=== PATIENT | male | born 1990 | race Caucasian/White ===

== ENCOUNTER 2020-10-09 13:14 | Outpatient (REF) | payer MEDICAID, SELFPAY ==
[2020-10-09 15:14] LABS: Alanine Aminotransferase 21 U/L (0-40); Albumin Level 4.6 g/dL (3.5-5.0); Alkaline Phosphatase 76 U/L (39-117); Anion Gap 10 (12-20); Aspartate Amino Transferase 19 U/L (5-37); Bilirubin Total 0.8 mg/dL (0.0-1.0); Blood Urea Nitrogen 13 mg/dL (9-16); Calcium 9.2 mg/dL (8.4-10.2); Carbon Dioxide 29 mmol/L (22-29); Chloride 104 mmol/L (96-108); Cholesterol 245 mg/dL; Estimated Glomerular Filt Rate > 60; Glucose Random 88 mg/dL (60-115); HDL Cholesterol 30 mg/dL; LDL Cholesterol Calculated 184 mg/dl; Potassium 4.3 mmol/l (3.3-5.1); Sodium 139 mmol/L (135-145); Total Protein 7.5 g/dL (6.5-8.0); Triglycerides 159 mg/dL
== END 2020-10-09 13:15 | disposition home or self-care (01) ==
LOC: HO.LAB 13:14
PROVIDERS: PCP Internal Medicine; Visit Provider Internal Medicine
DX: E78.00 Pure hypercholesterolemia, unspecified (principal); J02.9 Acute pharyngitis, unspecified; M54.5 Low back pain
CPT/HCPCS: 80053; 80061

== ENCOUNTER 2021-01-23 10:19 | Outpatient (REF) | payer OTHER, SELFPAY ==
--- NOTE | ~2021-01-23 | XR_ITS ---
EXAMINATION: XR SHOULDER, RIGHT CLINICAL INFORMATION: Injury COMPARISON: None TECHNIQUE: AP external rotation, Grashey, scapular Y, and axillary views of the right shoulder. FINDINGS: The bones and soft tissues are normal. No fracture. Glenohumeral and acromioclavicular alignment is anatomic with normal joint space. No abnormal soft tissue calcifications. XR/XR shoulder RT min 2V IMPRESSION: No fracture.
--- NOTE | ~2021-01-23 | XR_ITS ---
EXAMINATION: XR WRIST, LEFT CLINICAL INFORMATION: Pain left wrist . COMPARISON: None TECHNIQUE: PA, lateral, and oblique views of the left wrist. FINDINGS: The bones and soft tissues are normal. No fracture. Alignment is anatomic with normal joint spaces. No erosions or abnormal soft tissue calcifications. XR/XR wrist LT min 3V IMPRESSION: Unremarkable left wrist.
[2021-01-23 12:29] LABS: Alanine Aminotransferase 21 U/L (0-40); Albumin Level 4.4 g/dL (3.5-5.0); Alkaline Phosphatase 76 U/L (39-117); Anion Gap 14 (12-20); Aspartate Amino Transferase 14 U/L (5-37); Bilirubin Total 0.6 mg/dL (0.0-1.0); Blood Urea Nitrogen 9 mg/dL (9-16); Calcium 9.3 mg/dL (8.4-10.2); Carbon Dioxide 25 mmol/L (22-29); Chloride 105 mmol/L (96-108); Cholesterol 230 mg/dL; Estimated Glomerular Filt Rate > 60; Glucose Random 97 mg/dL (60-115); HDL Cholesterol 33 mg/dL; LDL Cholesterol Calculated 184 mg/dl; Potassium 4.5 mmol/L (3.3-5.1); Sodium 139 mmol/L (135-145); Total Protein 7.2 g/dL (6.5-8.0); Triglycerides 69 mg/dL
[2021-01-23 12:40] LABS: Amphetamine Screen Urine POSITIVE (Not Detect); Barbiturates, Urine Not Detected (Not Detect); Benzodiazepines Screen Urine Not Detected (Not Detect); Cannabinoid Screen Urine POSITIVE (Not Detect); Cocaine Screen Urine Not Detected (Not Detect); Opiate Screen Urine Not Detected (Not Detect); Phencyclidine Screen Urine Not Detected (Not Detect)
== END 2021-01-23 10:20 | disposition home or self-care (01) ==
LOC: HO.LAB 10:19
PROVIDERS: PCP Internal Medicine; Visit Provider Internal Medicine
DX: E78.00 Pure hypercholesterolemia, unspecified (principal); F90.9 Attention-deficit hyperactivity disorder, unspecified type; M25.532 Pain in left wrist; S49.91XA Unspecified injury of right shoulder and upper arm, initial encounter; X58.XXXA Exposure to other specified factors, initial encounter; Y93.9 Activity, unspecified; Y92.9 Unspecified place or not applicable; Y99.9 Unspecified external cause status
CPT/HCPCS: 73030; 73110; 80053; 80061; 80307

== ENCOUNTER 2021-01-25 00:36 | Emergency (ER) | payer OTHER, SELFPAY ==
--- NOTE | ~2021-01-25 | XR_ITS ---
EXAMINATION: SHOULDER 3 VIEWS, RIGHT CLINICAL INFORMATION: Right shoulder pain. COMPARISON: 01/23/2021. TECHNIQUE: AP views of the right shoulder were obtained in internal and external rotation. In addition, a Y view was obtained. FINDINGS: There are no fractures or dislocations. The humeral head is seated within a well-formed glenoid. The AC joint is intact. XR/XR shoulder RT min 2V IMPRESSION: Unremarkable right shoulder radiographs.
[2021-01-25 02:22] VITALS: BP 124/77; PULSE 67; RESP 18; TEMP 36.4; O2SAT 98; BMI 28.3
[2021-01-25 02:27] VITALS: RESP 18
--- NOTE | 2021-01-25 03:07 | ED_ITS ---
HPI - Extremity Problem General Chief complaint: Extremity Injury, Upper Stated complaint: SHOULDER PAIN INJURY Time Seen by Provider: 01/25/21 03:07 Source: patient Mode of arrival: ambulatory Limitations: no limitations History of Present Illness HPI Narrative: Patient fell few days ago while playing basketball landing on his right shoulder ,x-ray was done yesterday as outpatient which was negative today he popped his shoulder prior to arrival, comes here for pain, able to move his shoulder fully without difficulty Related Data Home Medications Medication Instructions Recorded Confirmed atorvastatin 1 tab PO DAILY 01/25/21 01/25/21 dextroamphetamine-amphetamine 1 cap PO QAM 01/25/21 01/25/21 [Adderall XR] Allergies Allergy/AdvReac Type Severity Reaction Status Date / Time ibuprofen [From MOTRIN] Allergy Intermediate HIVES AND Unverified 07/12/20 16:06 FACIAL SWELLING Review of Systems Review of Systems: Yes all other systems are reviewed and are negative PMFSH Past Medical History Medical History ADHD Surgical History History of appendectomy Social History Social History Alcohol intake: current Alcohol intake frequency: a few times a month Alcohol type: beer Smoking Status: Current every day smoker Smoked in Last 30 Days: Yes Substance Use Type: Marijuana and Prescription Drugs Advance Directives: No Advance Directives Information Provided: No Physical Exam Vital Signs: Vital Signs: Last Vital Signs Temp 97.6 F 01/25/21 02:22 Pulse 67 01/25/21 02:22 Resp 18 01/25/21 02:27 BP 124/77 01/25/21 02:22 Pulse Ox 98 01/25/21 02:22 Body Mass Index 28.3 Const: General: comfortable and no acute distress HENMT: Head: Yes normocephalic and Yes atraumatic Extrem: Shoulder/upper arm images: 1. Tender right trapezius area normal contour of right shoulder good range of movement neurovascular intact no deform ity noticed MDM - Extremity (Nontraumatic) MDM Narrative Medical decision making narrative: Patient muscular pain specially the right trapezius area with normal right shoulder on examination x-ray also negative for any acute dislocation or fracture discharged home advised to take tramadol Discharge Plan Discharge Prescriptions: No Action atorvastatin 40 mg tablet 1 tab PO DAILY RF: 0 dextroamphetamine-amphetamine [Adderall XR] 10 mg capsule,extended release 24hr 1 cap PO QAM RF: 0
[2021-01-25] MEDS: traMADoL HCL 50 MG TABLET PO (03:29)
== END 2021-01-25 03:32 | disposition home or self-care (01) ==
PROVIDERS: Emergency Provider Internal Medicine
DX: S46.911A Strain of unspecified muscle, fascia and tendon at shoulder and upper arm level, right arm, initial encounter (principal); W01.0XXA Fall on same level from slipping, tripping and stumbling without subsequent striking against object, initial encounter; F17.200 Nicotine dependence, unspecified, uncomplicated; F12.90 Cannabis use, unspecified, uncomplicated; Y93.67 Activity, basketball; Y92.310 Basketball court as the place of occurrence of the external cause; Y99.8 Other external cause status
CPT/HCPCS: 73030; 99283; 99284

== ENCOUNTER 2022-03-10 10:34 | Outpatient (REF) | payer OTHER, SELFPAY ==
--- NOTE | ~2022-03-10 | XR_ITS ---
EXAMINATION: XR HAND, LEFT CLINICAL INFORMATION: Injury COMPARISON: None TECHNIQUE: PA, lateral, and oblique views of the left hand. FINDINGS: The bones and soft tissues are normal. No fracture. Alignment is anatomic. Joint spaces are maintained. No erosions or soft tissue calcifications. XR/XR hand LT min 3V IMPRESSION: No fracture.
== END 2022-03-10 10:35 | disposition home or self-care (01) ==
LOC: HO.XRAY 10:34
PROVIDERS: Visit Provider Internal Medicine
DX: Z13.89 Encounter for screening for other disorder (principal)
CPT/HCPCS: 73130

== ENCOUNTER 2022-04-30 09:08 | Outpatient (REF) | payer OTHER, SELFPAY ==
[2022-04-30 10:36] LABS: MANUAL DIFF FLAG NO
[2022-04-30 10:43] LABS: Basophils Percent Auto 0.5 % (0-2); Eosinophils Absolute Auto 0.2 X10*3/uL (0.0-0.4); Eosinophils Percent Auto 2.3 % (0-4); Hemoglobin 15.8 g/dl (14.0-18.0); Imm Gran Abs Auto 0.04 X10*3/uL (0.00-0.03); Imm Gran Pct Auto 0.5 % (0.0-0.4); Lymphocytes Percent Auto 26.6 % (20-40); Mean Corpuscular HGB Conc 34.3 g/dl (31.0-36.0); Mean Corpuscular Hemoglobin 30.5 pg (27.0-33.0); Mean Corpuscular Volume 88.8 fL (80.0-98.0); Mean Platelet Volume 10.2 fL (9.4-12.4); Monocytes Absolute Auto 0.6 X10*3/uL (0.1-1.2); Monocytes Percent Auto 7.2 % (2-11); Neutrophils Absolute Auto 4.8 x10*3/uL (2.0-8.3); Neutrophils Percent Auto 62.9 % (45-73); Platelet Count 304 X10*3/uL (160-400); Red Blood Count 5.18 X10*6/uL (4.60-5.80); White Blood Count 7.7 X10*3/uL (4.8-10.8)
[2022-04-30 10:56] LABS: Alanine Aminotransferase 33 U/L (0-40); Albumin Level 4.3 g/dL (3.5-5.0); Alkaline Phosphatase 68 U/L (39-117); Anion Gap 11 (12-20); Aspartate Amino Transferase 21 U/L (5-37); Bilirubin Total 0.4 mg/dL (0.0-1.0); Blood Urea Nitrogen 10 mg/dL (9-16); Calcium 9.5 mg/dL (8.4-10.2); Carbon Dioxide 25 mmol/L (22-29); Chloride 107 mmol/L (96-108); Cholesterol 222 mg/dL; Estimated Glomerular Filt Rate > 60; Glucose Random 102 mg/dL (60-115); HDL Cholesterol 33 mg/dL; LDL Cholesterol Calculated 158 mg/dl; Potassium 4.4 mmol/L (3.3-5.1); Sodium 139 mmol/L (135-145); Total Protein 7.1 g/dL (6.5-8.0); Triglycerides 159 mg/dL
[2022-04-30 11:12] LABS: Thyroid Stimulating Hormone 1.31 uIU/mL (0.32-4.0)
[2022-04-30 13:15] LABS: CT PCR NOT DETECTED (Not Detect.); NG PCR NOT DETECTED (Not Detect.)
[2022-05-06 22:32] LABS: HSV 1 IgM IFA Negative (Negative); HSV 2 IgM IFA Negative (Negative)
== END 2022-04-30 09:09 | disposition home or self-care (01) ==
LOC: HO.10HDL 09:08
PROVIDERS: Visit Provider Internal Medicine
DX: Z00.00 Encounter for general adult medical examination without abnormal findings (principal); E78.00 Pure hypercholesterolemia, unspecified; R41.840 Attention and concentration deficit; Z13.31 Encounter for screening for depression
CPT/HCPCS: 36415; 80053; 80061; 84443; 85025; 86695; 86696; 87491; 87591

== ENCOUNTER 2022-12-03 12:11 | Outpatient (REF) | payer OTHER, SELFPAY ==
--- NOTE | ~2022-12-03 | XR_ITS ---
EXAMINATION: XR SHOULDER, RIGHT CLINICAL INFORMATION: Pain in right shoulder COMPARISON: 01/25/2021 TECHNIQUE: AP external rotation, Grashey, scapular Y, and axillary views of the right shoulder. FINDINGS: No acute fracture or dislocation. There is mild narrowing of the glenohumeral joint. Elevation of the humeral head relative to the glenoid fossa likely reflects underlying rotator cuff pathology. Mild degenerative changes of the acromioclavicular joint, progressed from prior study. XR/XR shoulder RT min 2V IMPRESSION: Mild narrowing of the glenohumeral joint. Elevation of the humeral head relative to the glenoid fossa likely reflects underlying rotator cuff pathology. Mild degenerative changes of the acromioclavicular joint, progressed from prior study.
== END 2022-12-03 12:12 | disposition home or self-care (01) ==
LOC: HO.HOSX 12:11
PROVIDERS: Visit Provider Physician Assistant
DX: M25.511 Pain in right shoulder (principal); M25.311 Other instability, right shoulder
CPT/HCPCS: 73030; 99202

== ENCOUNTER 2023-01-01 13:13 | Outpatient (REF) | payer OTHER, SELFPAY ==
--- NOTE | ~2023-01-01 | MR_ITS ---
EXAMINATION: MR SHOULDER WITH CONTRAST, RIGHT CLINICAL INFORMATION: Shoulder instability COMPARISON: Radiographs 12/03/2022 TECHNIQUE: MRI of the shoulder was performed following the intra-articular administration of a dilute gadolinium-containing solution (arthrogram) on a high-field scanner. FINDINGS: ROTATOR CUFF: Intact. No muscle atrophy or fatty infiltration. BICEPS: Normal. CORACOACROMIAL ARCH: The undersurface of the acromion is curved with no subacromial spur. Moderate acromioclavicular osteoarthritis. LABRUM/CAPSULE: The anterior inferior labrum is ill-defined and irregular, likely chronic tearing and attritional wear. Ill-defined undersurface tearing/fraying of the superior labrum. The humeral attachment of the inferior glenohumeral ligament is attenuated, likely a remote tear/avulsion (HAGL). GLENOHUMERAL JOINT/MARROW: There is cartilage irregularity of the anterior inferior glenoid rim with minimal degenerative spurring and a chondral flap at the 3:00 position. There is a 1.2 cm intra-articular body in the axillary recess. MR/MR shoulder RT w con IMPRESSION: 1. No rotator cuff tear. 2. Mild glenohumeral osteoarthritis with a 1.2 cm intra-articular body in the axillary recess. Ill-defined tearing/fraying of the anterior inferior labrum and undersurface fraying/tearing of the superior labrum. 3. Probable remote HAGL. 4. Moderate acromioclavicular osteoarthritis.
--- NOTE | ~2023-01-01 | FL_ITS ---
PROCEDURE: XR ARTHROGRAM SHOULDER, RIGHT CLINICAL INFORMATION: Right shoulder instability. Pain. COMPARISON: None TECHNIQUE: Following explaining fluoroscopy-guided right shoulder arthrogram procedure, benefits and risk, a written consent was obtained. Patient was placed supine on fluoroscopy table and anterior aspect of right shoulder was cleaned and draped in the usual sterile manner. 1% lidocaine was injected at the skin level overlying the right glenohumeral joint. A 22-gauge spinal needle was then inserted from the skin into the joint space and 2 mL of nonionic contrast was injected. After confirming contrast in the joint space under fluoroscopy, 0.1 mL of gadolinium diluted with 10 mL of 1% lidocaine was injected and needle withdrawn. Complete hemostasis achieved at puncture site. Sterile Band-Aid was applied at puncture site. Patient tolerated procedure extremely well FINDINGS: There are no fractures or dislocations. No joint effusion is identified. No bone, joint or soft tissue abnormality is demonstrated. Fluoroscopy-guided intra-articular gadolinium injected. FLUOROSCOPY TIME: 1.3 minutes DOSE AREA PRODUCT: 4.710 uGy-m2 (microgray-meter squared) FL/FL arthrogram shoulder RT IMPRESSION: Successful fluoroscopy-guided right shoulder arthrogram injected for patient to be imaged by MRI.
== END 2023-01-01 13:14 | disposition home or self-care (01) ==
LOC: HO.XRAY 13:13
PROVIDERS: PCP Internal Medicine; Visit Provider Physician Assistant
DX: M25.311 Other instability, right shoulder (principal)
CPT/HCPCS: 23350; 73040; 73222; A9585

== ENCOUNTER → 2023-01-29 14:49 | Outpatient (BNVA) | payer OTHER, SELFPAY | PROVIDERS: PCP Internal Medicine; Visit Provider Orthopaedic Surgery | DX: M25.311 Other instability, right shoulder (principal) | CPT/HCPCS: 99212 ==

== ENCOUNTER 2024-04-07 11:52 | Outpatient (REF) | payer OTHER, SELFPAY ==
[2024-04-07 13:11] LABS: MANUAL DIFF FLAG NO
[2024-04-07 13:27] LABS: Basophils Percent Auto 0.4 % (0-2); Eosinophils Absolute Auto 0.1 X10*3/uL (0.0-0.4); Eosinophils Percent Auto 0.9 % (0-4); Hematocrit 45.7 % (42.0-52.0); Hemoglobin 15.5 g/dl (14.0-18.0); Imm Gran Abs Auto 0.04 X10*3/uL (0.00-0.03); Imm Gran Pct Auto 0.4 % (0.0-0.4); Lymphocytes Absolute Auto 2.4 X10*3/uL (1.2-4.9); Lymphocytes Percent Auto 26.5 % (20-40); Mean Corpuscular HGB Conc 33.9 g/dl (31.0-36.0); Mean Corpuscular Volume 88.6 fL (80.0-98.0); Mean Platelet Volume 9.5 fL (9.4-12.4); Monocytes Absolute Auto 0.6 X10*3/uL (0.1-1.2); Neutrophils Absolute Auto 5.8 x10*3/uL (2.0-8.3); Neutrophils Percent Auto 64.8 % (45-73); Platelet Count 358 X10*3/uL (160-400); Red Blood Count 5.16 X10*6/uL (4.60-5.80); Red Cell Distribution Width 12.8 % (11.0-16.0)
[2024-04-07 13:41] LABS: Alanine Aminotransferase 58 U/L (0-40); Albumin Level 4.4 g/dL (3.5-5.0); Alkaline Phosphatase 73 U/L (39-117); Anion Gap 10 (12-20); Aspartate Amino Transferase 52 U/L (5-37); Bilirubin Total 0.9 mg/dL (0.0-1.0); Blood Urea Nitrogen 10 mg/dL (9-16); Calcium 9.4 mg/dL (8.4-10.2); Carbon Dioxide 28 mmol/L (22-29); Chloride 104 mmol/L (96-108); Cholesterol 212 mg/dL (<200); Estimated Glomerular Filt Rate > 60; Glucose Random 86 mg/dL (60-115); HDL Cholesterol 30 mg/dL (>40); LDL Cholesterol Calculated 147 mg/dL (<100); Potassium 4.1 mmol/L (3.3-5.1); Sodium 138 mmol/L (135-145); Total Protein 7.5 g/dL (6.5-8.0); Triglycerides 175 mg/dL (<150)
[2024-04-07 13:56] LABS: Syphilis Screen Nonreactive (Nonreactive)
[2024-04-07 15:09] LABS: CT PCR NOT DETECTED (Not Detect.); NG PCR NOT DETECTED (Not Detect.)
[2024-04-08 08:09] LABS: HIV AB/AG Nonreactive (Nonreactive); HIV Num 1 0.05 S/CO (0.00-0.99)
== END 2024-04-07 11:53 | disposition home or self-care (01) ==
LOC: HO.10HDL 11:52
PROVIDERS: Visit Provider Internal Medicine
DX: E78.00 Pure hypercholesterolemia, unspecified (principal); F90.9 Attention-deficit hyperactivity disorder, unspecified type; I10 Essential (primary) hypertension; R21 Rash and other nonspecific skin eruption; Z11.3 Encounter for screening for infections with a predominantly sexual mode of transmission
CPT/HCPCS: 0353U; 80053; 80061; 85025; 86780; 87389

== ENCOUNTER 2025-04-18 11:40 | Outpatient (REF) | payer OTHER, SELFPAY ==
[2025-04-18 13:40] LABS: Alanine Aminotransferase 36 U/L (0-40); Albumin Level 4.4 g/dL (3.5-5.0); Alkaline Phosphatase 74 U/L (39-117); Anion Gap 12 (12-20); Aspartate Amino Transferase 30 U/L (5-37); Bilirubin Total 0.3 mg/dL (0.0-1.0); Blood Urea Nitrogen 10 mg/dL (9-16); Calcium 9.4 mg/dL (8.4-10.2); Carbon Dioxide 27 mmol/L (22-29); Chloride 107 mmol/L (96-108); Cholesterol 227 mg/dL (<200); Estimated Glomerular Filt Rate > 60; Glucose Random 95 mg/dL (60-115); HDL Cholesterol 34 mg/dL (>40); LDL Cholesterol Calculated 167 mg/dL (<100); Potassium 4.1 mmol/L (3.3-5.1); Sodium 142 mmol/L (135-145); Total Protein 7.3 g/dL (6.5-8.0); Triglycerides 134 mg/dL (<150)
[2025-04-18 13:46] LABS: HBS Num1 7.19 mIU/mL (0-7.99); HBc Num1 0.08 S/CO (0.00-0.79); HBsAGNum1 0.51 S/CO (0.00-0.99); Hepatitis B Core Antibody Nonreactive (Nonreactive); Hepatitis B Surface Antigen Negative (Negative); ~HepC Num1 0.17 S/CO (0.00-0.79); ~Hepatitis B Surface Antibody NONREACTIVE (Nonreactive); ~Hepatitis C Antibody Nonreactive (Nonreactive)
[2025-04-18 14:51] LABS: CT PCR DETECTED (Not Detect.); NG PCR NOT DETECTED (Not Detect.)
== END 2025-04-18 11:41 | disposition home or self-care (01) ==
LOC: HO.10HDL 11:40
PROVIDERS: Visit Provider Internal Medicine
DX: Z00.00 Encounter for general adult medical examination without abnormal findings (principal); E78.00 Pure hypercholesterolemia, unspecified; M26.623 Arthralgia of bilateral temporomandibular joint; R36.9 Urethral discharge, unspecified; R74.01 Elevation of levels of liver transaminase levels
CPT/HCPCS: 80053; 80061; 86704; 86706; 86803; 87340; 87491; 87591

== ENCOUNTER → 2025-09-07 09:16 | Outpatient (BNVA) | payer OTHER, SELFPAY | PROVIDERS: PCP Internal Medicine; Visit Provider Emergency Medicine | DX: S86.112A Strain of other muscle(s) and tendon(s) of posterior muscle group at lower leg level, left leg, initial encounter (principal); X50.1XXA Overexertion from prolonged static or awkward postures, initial encounter | CPT/HCPCS: 99202 ==

== ENCOUNTER → 2025-09-25 08:03 | Outpatient (BNVA) | payer OTHER, SELFPAY | PROVIDERS: PCP Internal Medicine; Visit Provider Emergency Medicine | DX: S86.112D Strain of other muscle(s) and tendon(s) of posterior muscle group at lower leg level, left leg, subsequent encounter (principal); X50.1XXD Overexertion from prolonged static or awkward postures, subsequent encounter | CPT/HCPCS: 99213 ==

== ENCOUNTER → 2025-10-11 11:42 | Outpatient (BNVA) | payer OTHER, SELFPAY | PROVIDERS: PCP Internal Medicine; Visit Provider Emergency Medicine | DX: S86.112D Strain of other muscle(s) and tendon(s) of posterior muscle group at lower leg level, left leg, subsequent encounter (principal); X50.1XXD Overexertion from prolonged static or awkward postures, subsequent encounter | CPT/HCPCS: 99213 ==